=== PATIENT | female | born 1995 | race Caucasian/White ===

== ENCOUNTER 2018-01-05 04:58 | Inpatient (IN) | payer BC ==
[2018-01-05] MEDS ORDERED: Sodium Chloride 0.9% 10 ML Syringe FLUSH PRN (06:37)
[2018-01-05] MEDS ORDERED: Ampicillin 2 GM in Sodium Chloride 0.9% 100 ML IV ONE (06:37)
--- NOTE | 2018-01-05 06:38 | PCM.LDHP ---
L&D History of Present Illness - General Date of Service: 01/05/18 Admit Problem/Dx: Patient Status Order with Admit Dx/Problem 01/05/18 05:06 Patient Status [ADT] Routine Admission Diagnosis/Problem Admission Diagnosis/Problem and not yet delivered Source of Information: Patient History Limitations: Reports: No Limitations - History of Present Illness Introduction:: 22 yo primigravida with leakage of fluid since this morning. No fever or bleeding. Has had unremarkable except Group B is positive. Quality: Reports: Pressure Improves with: Reports: None Worsens with: Reports: None Associated Symptoms: Reports: N - Related Data Allergies/Adverse Reactions: Allergies Allergy/AdvReac Type Severity Reaction Status Date / Time No Known Allergies Allergy Verified 01/05/18 06:41 H&P Review of Systems - Review of Systems: Review Of Systems: ROS reveals no pertinent complaints other than HPI. L&D Exam - Exam Exam: See Below - OB Specific Contraction Intensity: Mild to Moderate Movement: Active Heart Tones: Present Heart Rate (FHR) Variability: Moderate (6-25 bmp) Presentation: Vertex - Vargas Score Vargas Score Cervix Position: Midposition Vargas Score Effacement: 31-50% Vargas Score Dilation: 3-4 cm - Exam General: Alert, Oriented HEENT: PERRLA, Conjunctiva Clear, EACs Clear, EOMI, Hearing Intact, Mucosa Moist & [place], Nares Patent, Normal Nasal Septum, Posterior Pharynx Clear, TMs Clear Neck: Supple, Trachea Midline Lungs: Clear to Auscultation, Normal Respiratory Effort Cardiovascular: Regular Rate, Regular Rhythm GI/Abdominal Exam: Normal Bowel Sounds, Soft, Non-Tender, No Organomegaly, No Distention, No Abnormal Bruit, No Mass, Pelvis Stable Rectal Exam: Normal Exam, Normal Rectal Tone Genitourinary: Normal external exam, Normal bimanual exam, Normal speculum exam Back Exam: Normal Inspection, Full Range of Motion Extremities: Normal Inspection, Normal Range of Motion, Non-Tender, No Pedal Edema, Normal Capillary Refill Skin: Warm, Dry, Intact Neurological: Cranial Nerves Intact, Reflexes Equal Bilateral Psychiatric: Alert, Normal Affect, Normal Mood - Patient Data Lab Results Last 24 hrs: Laboratory Results - last 24 hr 01/05/18 Range/Units 06:15 Membrane Rupture Positive H (NEGATIVE) - Problem List (1) Rupture, membranes, premature SNOMED Code(s): 02393692 ICD Code: O42.90 - EMETERIO ROM, 7TH0 BETW RUPT & ONST LABR, UNSP WEEKS OF GEST Status: Acute Current Visit: Yes Qualifiers: PROM onset of labor timing: onset of labor within 24 hours of rupture (2) Term SNOMED Code(s): 64263200 ICD Code: Z34.80 - ENCOUNTER FOR SUPRVSN OF NORMAL , UNSP TRIMESTER Status: Acute Current Visit: Yes (3) Group B streptococcal carriage complicating SNOMED Code(s): 258528922184047 ICD Code: O99.820 - STREPTOCOCCUS B CARRIER STATE COMPLICATING Status: Acute Current Visit: Yes Problem List Initiated/Reviewed/Updated: Yes Orders Last 24hrs: Active Orders 24 hr Category Date Time Status Patient Status [ADT] Routine ADT 01/05/18 05:06 Active Monitoring [RC] CONTINUOUS Care 01/05/18 05:06 Active AMNISURE RUPTURE MEMBRAN [BF] Stat Lab 01/05/18 06:15 Ordered Resuscitation Status Routine Resus Stat 01/05/18 05:06 Ordered Assessment/Plan Comment:: Start Pitocin to augment labor. Start Chemoprophylaxis with Ampicillin per protocol.
[2018-01-05] MEDS: Lactated Ringers 1,000 ML IV SCH ×2 (10:28→16:23)
[2018-01-05] MEDS: Ampicillin 1 GM in Sodium Chloride 0.9% 50 ML IV SCH ×2 (11:00→15:38)
[2018-01-05] MEDS ORDERED: fentaNYL 100 MCG/2 ML SDV ITHECAL ONE (16:00)
[2018-01-05] MEDS ORDERED: Bupivacaine 0.75%/D5W 2 ML Amp ISPINAL ONE (16:00)
[2018-01-05] MEDS ORDERED: Morphine PF 10 MG/10 ML SDV ONE (16:00)
[2018-01-05] MEDS ORDERED: ePHEDrine 50 MG/ML SDV ONE (16:10)
[2018-01-05] MEDS ORDERED: Naloxone 0.4 MG/ML SDV ONE (16:11)
[2018-01-05] MEDS ORDERED: diphenhydrAMINE 50 MG/ML SDV IV PRN (17:12)
[2018-01-05] MEDS ORDERED: Ondansetron 4 MG/2 ML SDV IVPUSH PRN (17:12)
[2018-01-05] MEDS ORDERED: Naloxone 0.4 MG/ML SDV IVPUSH PRN (17:12)
[2018-01-05] MEDS ORDERED: Nalbuphine 10 MG/1 ML Vial IVPUSH PRN (17:12)
[2018-01-05] MEDS ORDERED: Ibuprofen 600 MG Tab PO PRN (17:45)
[2018-01-05] MEDS ORDERED: Misoprostol 200 MCG Tab RECTAL PRN (17:45)
--- NOTE | 2018-01-05 17:50 | PCM.DEL ---
L & D Note - General Info Date of Service: 01/05/18 - Delivery Note Labor: Spontaneous, Augmented by ARM, Augmented by Oxytocin Delivery Outcome: Livebirth Infant Delivery Method: Spontaneous Vaginal Delivery-Single Presentation: Vertex Nuchal Cord: None Prep: Povidone-Iodine (Betadine Anesthesia Type: Intrathecal Amniotic Fluid Description: Clear Episiotomy Type: None Laceration: 1st Degree, Periurethral Placenta: Intact, Spontaneous Cord: 3 Vessels Resuscitation Needed: No [place]: Bulb Syringe, Warmer Used Second Stage Interventions: Reports: Second Nurse Assessed Progress of Descent, Second Nurse Reviewed Contraction Pattern, Second Nurse Reviewed Heart Tones, Encouragement Given, Pushing Effectively, Pushing, Birthing Stool, Pushing, McRobert's Position Delivery Comments (Free Text/Narrative):: Live female infant born at 1733hrs. Apgars 9/9.Delayed cord clamping. Had hemorrhage about 6-700 cc.Need Pitocin and Cytotec rectally to achieve contractions and homeostasis.2 Simple periurethral lacs no need for suture. - General Info Date of Service: 01/05/18 Functional Status: Reports: Pain Controlled - Review of Systems General: Reports: No Symptoms HEENT: Reports: No Symptoms Pulmonary: Reports: No Symptoms Cardiovascular: Reports: No Symptoms Gastrointestinal: Reports: No Symptoms Genitourinary: Reports: No Symptoms Musculoskeletal: Reports: No Symptoms Skin: Reports: No Symptoms Neurological: Reports: No Symptoms Psychiatric: Reports: No Symptoms - Patient Data Vitals - Most Recent: Last Vital Signs Temp 97.6 F 01/05/18 10:30 Pulse 66 01/05/18 13:31 Resp 20 01/05/18 10:30 BP 104/58 L 01/05/18 12:54 Pulse Ox 98 01/05/18 12:17 Weight - Most Recent: 77.564 kg I&O - Last 24 Hours: Intake & Output 01/05/18 01/05/18 01/05/18 06:59 14:59 22:59 Intake Total 131 Output Total 1300 Balance -1169 Lab Results Last 24 Hours: Laboratory Results - last 24 hr 01/05/18 Range/Units 06:15 Membrane Rupture Positive H (NEGATIVE) Med Orders - Current: Current Medications Diphenhydramine HCl (Benadryl) 25 mg IV ONETIME PRN PRN Reason: Pruritus Ampicillin Sodium 1 gm/ Sodium (Chloride) 50 mls @ 100 mls/hr IV Q4H [facility] Last Admin: 01/05/18 15:38 Dose: 100 mls/hr Oxytocin/Sodium Chloride (Pitocin In Ns 20 Units/1,000 Ml) 20 unit in 1,000 mls @ 6 mls/hr IV TITRATE [facility]; Protocol Last Titration: 01/05/18 14:45 Dose: 14 munits/min, 42 mls/hr Lactated Ringer's (Ringers, Lactated) 1,000 mls @ 125 mls/hr IV ASDIRECTED [facility] Last Admin: 01/05/18 16:23 Dose: 125 mls/hr Nalbuphine HCl (Nubain) 10 mg IVPUSH Q1H PRN PRN Reason: Pruritus Naloxone HCl (Narcan) 0.1 mg IVPUSH ONETIME PRN PRN Reason: Oversedation Ondansetron HCl (Zofran) 4 mg IVPUSH Q6H PRN PRN Reason: Nausea/Vomiting Sodium Chloride (Saline Flush) 10 ml FLUSH ASDIRECTED PRN PRN Reason: Keep Vein Open Last Admin: 01/05/18 07:18 Dose: 10 ml Discontinued Medications Ephedrine Sulfate (Ephedrine Sulfate) Confirm Administered Dose 50 mg .ROUTE .STK-MED ONE Stop: 01/05/18 16:11 Ampicillin Sodium 2 gm/ Sodium (Chloride) 100 mls @ 200 mls/hr IV ONETIME ONE Stop: 01/05/18 07:06 Last Admin: 01/05/18 07:15 Dose: 200 mls/hr Naloxone HCl (Narcan) Confirm Administered Dose 0.4 mg .ROUTE .STK-MED ONE Stop: 01/05/18 16:12 - Exam General: Alert, Oriented HEENT: Pupils Equal, Pupils Reactive, EOMI, Mucous Membr. Moist/[place] Neck: Supple Lungs: Clear to Auscultation, Normal Respiratory Effort Cardiovascular: Regular Rate, Regular Rhythm GI/Abdominal Exam: Normal Bowel Sounds, Soft, Non-Tender, No Organomegaly, No Distention, No Abnormal Bruit, No Mass, Pelvis Stable (Female) Exam: Normal External Exam, Normal Speculum Exam, Normal Bimanual Exam Back Exam: Normal Inspection, Full Range of Motion Extremities: Normal Inspection, Normal Range of Motion, Non-Tender, No Pedal Edema, Normal Capillary Refill Skin: Warm, Dry, Intact Wound/Incisions: Healing Well Neurological: No New Focal Deficit Psy/Mental Status: Alert, Normal Affect, Normal Mood - Problem List & Annotations (1) Rupture, membranes, premature SNOMED Code(s): 11045114 Code(s): O42.90 - EMETERIO ROM, 7TH0 BETW RUPT & ONST LABR, UNSP WEEKS OF GEST Status: Acute Current Visit: Yes Qualifiers: PROM onset of labor timing: onset of labor within 24 hours of rupture (2) Term SNOMED Code(s): 45260104 Code(s): Z34.80 - ENCOUNTER FOR SUPRVSN OF NORMAL , UNSP TRIMESTER Status: Acute Current Visit: Yes (3) Group B streptococcal carriage complicating SNOMED Code(s): 905870287918667 Code(s): O99.820 - STREPTOCOCCUS B CARRIER STATE COMPLICATING Status: Acute Current Visit: Yes (4) hemorrhage SNOMED Code(s): 40588895 Code(s): O72.1 - OTHER IMMEDIATE HEMORRHAGE Status: Acute Current Visit: Yes - Problem List Review Problem List Initiated/Reviewed/Updated: Yes - My Orders Last 24 Hours: My Active Orders 01/05/18 05:06 Resuscitation Status Routine 01/05/18 06:15 AMNISURE RUPTURE MEMBRAN [BF] Stat 01/05/18 06:37 Patient Status [ADT] Routine Communication Order [RC] ASDIRECTED Notify Provider [RC] PRN Sodium Chloride 0.9% [Saline Flush] 10 ml FLUSH ASDIRECTED PRN Electronic Heart Tones Ext w TOCO [WOMSER] Per Unit Routine Peripheral IV Insertion Adult [OM.PC] Routine Saline Lock Insert [OM.PC] Routine 01/05/18 06:40 Notify Provider Vital Signs [RC] PRN 01/05/18 10:02 Communication Order [RC] ASDIRECTED Communication Order [RC] ASDIRECTED Communication Order [RC] ASDIRECTED Communication Order [RC] ASDIRECTED Notify Provider [RC] PRN Notify Provider [RC] STAT Vital Signs [RC] PER UNIT ROUTINE 01/05/18 10:15 Lactated Ringers [Ringers, Lactated] 1,000 ml IV ASDIRECTED Oxytocin/Normal Saline [Pitocin in NS 20 Units/1,000 ML] 20 unit in 1,000 ml IV TITRATE 01/05/18 11:00 Ampicillin 1 gm Sodium Chloride 0.9% [Normal Saline] 50 ml IV Q4H 01/05/18 17:45 Vital Signs [RC] PFP Ibuprofen [Motrin] 600 mg PO Q4H PRN Misoprostol [Cytotec] 600 mcg RECTAL ONETIME PRN Nothing Per Rectum [WOMSER] Per Unit Routine 01/06/18 05:11 CBC WITH AUTO DIFF [HEME] AM - Plan Plan:: Given Cytotec. Will follow VS and repeat CBC in AM.
--- NOTE | 2018-01-06 19:35 | PCM.PNPP ---
- General Info Date of Service: 01/06/18 Subjective Update: Doing well. - Review of Systems General: Reports: No Symptoms HEENT: Reports: No Symptoms Pulmonary: Reports: No Symptoms Cardiovascular: Reports: No Symptoms Gastrointestinal: Reports: No Symptoms Genitourinary: Reports: No Symptoms Musculoskeletal: Reports: No Symptoms - General Info Date of Service: 01/06/18 - Patient Data Vital Signs - Most Recent: Last Vital Signs Temp 98.0 F 01/06/18 16:00 Pulse 71 01/06/18 16:00 Resp 20 01/06/18 16:00 BP 112/71 01/06/18 16:00 Pulse Ox 98 01/06/18 16:00 Weight - Most Recent: 77.564 kg I&O - Last 24 Hours: Intake & Output 01/06/18 01/06/18 01/06/18 06:59 14:59 22:59 Intake Total 0 1500 1000 Output Total 600 1000 900 Balance -600 500 100 Lab Results - Last 24 Hours: Laboratory Results - last 24 hr 01/06/18 Range/Units 06:30 WBC 10.5 (4.5-12.0) X10-3/uL RBC 3.81 (3.23-5.20) x10(6)uL Hgb 12.3 (11.5-15.5) g/dL Hct 34.6 (30.0-51.3) % MCV 90.9 (80-96) fL MCH 32.3 (27.7-33.6) pg MCHC 35.6 H (32.2-35.4) g/dL RDW 12.0 (11.5-15.5) % Plt Count 199 (125-369) X10(3)uL MPV 8.5 (7.4-10.4) fL Neut % (Auto) 72.1 (46-82) % Lymph % (Auto) 17.4 (13-37) % [place] % (Auto) 9.1 (4-12) % Eos % (Auto) 1 (1.0-5.0) % Baso % (Auto) 1 (0-2) % Neut # (Auto) 7.5 (1.6-8.3) # Lymph # (Auto) 1.8 (0.6-5.0) # [place] # (Auto) 1.0 (0.0-1.3) # Eos # (Auto) 0.1 (0.0-0.8) # Baso # (Auto) 0.1 (0.0-0.2) # Med Orders - Current: Current Medications Diphenhydramine HCl (Benadryl) 25 mg IV ONETIME PRN PRN Reason: Pruritus Oxytocin/Sodium Chloride (Pitocin In Ns 20 Units/1,000 Ml) 20 unit in 1,000 mls @ 6 mls/hr IV TITRATE [facility]; Protocol Last Titration: 01/05/18 14:45 Dose: 14 munits/min, 42 mls/hr Lactated Ringer's (Ringers, Lactated) 1,000 mls @ 125 mls/hr IV ASDIRECTED [facility] Last Admin: 01/05/18 16:23 Dose: 125 mls/hr Ibuprofen (Motrin) 600 mg PO Q4H PRN PRN Reason: Pain Misoprostol (Cytotec) 600 mcg RECTAL ONETIME PRN PRN Reason: excessive vaginal bleeding Last Admin: 01/05/18 17:40 Dose: 600 mcg Nalbuphine HCl (Nubain) 10 mg IVPUSH Q1H PRN PRN Reason: Pruritus Naloxone HCl (Narcan) 0.1 mg IVPUSH ONETIME PRN PRN Reason: Oversedation Ondansetron HCl (Zofran) 4 mg IVPUSH Q6H PRN PRN Reason: Nausea/Vomiting Sodium Chloride (Saline Flush) 10 ml FLUSH ASDIRECTED PRN PRN Reason: Keep Vein Open Last Admin: 01/05/18 07:18 Dose: 10 ml Discontinued Medications Ephedrine Sulfate (Ephedrine Sulfate) Confirm Administered Dose 50 mg .ROUTE .STK-MED ONE Stop: 01/05/18 16:11 Last Admin: 01/05/18 18:07 Dose: Not Given Ampicillin Sodium 2 gm/ Sodium (Chloride) 100 mls @ 200 mls/hr IV ONETIME ONE Stop: 01/05/18 07:06 Last Admin: 01/05/18 07:15 Dose: 200 mls/hr Ampicillin Sodium 1 gm/ Sodium (Chloride) 50 mls @ 100 mls/hr IV Q4H [facility] Last Admin: 01/05/18 15:38 Dose: 100 mls/hr Naloxone HCl (Narcan) Confirm Administered Dose 0.4 mg .ROUTE .STK-MED ONE Stop: 01/05/18 16:12 Last Admin: 01/05/18 18:07 Dose: Not Given - Infant Interaction Disposition, : [place] at Bedside Infant Interaction: Holding Infant Infant Feeding: Attempted ; Nursed Fair/Poor Support Person: - Recovery Exam Fundal Tone: Firm Fundal Level: 1 Fingerbreadths Below Umbilicus Fundal Placement: Midline Lochia Amount: Small Lochia Color: Rubra/Red Perineum Description: Redness, Edematous Episiotomy/Laceration: None Bladder Status: Voiding - Exam General: Alert, Oriented HEENT: Pupils Equal Neck: Supple Lungs: Clear to Auscultation, Normal Respiratory Effort Cardiovascular: Regular Rate, Regular Rhythm GI/Abdominal Exam: Normal Bowel Sounds, Soft, Non-Tender, No Organomegaly, No Distention, No Abnormal Bruit, No Mass, Pelvis Stable Extremities: Normal Inspection, Normal Range of Motion, Non-Tender, No Pedal Edema, Normal Capillary Refill Skin: Warm, Dry, Intact Wound/Incisions: Healing Well Neurological: No New Focal Deficit Psy/Mental Status: Alert, Normal Affect, Normal Mood - Problem List & Annotations (1) Rupture, membranes, premature SNOMED Code(s): 77623347 Code(s): O42.90 - EMETERIO ROM, 7TH0 BETW RUPT & ONST LABR, UNSP WEEKS OF GEST Status: Acute Current Visit: Yes Qualifiers: PROM onset of labor timing: onset of labor within 24 hours of rupture (2) Term SNOMED Code(s): 12902094 Code(s): Z34.80 - ENCOUNTER FOR SUPRVSN OF NORMAL , UNSP TRIMESTER Status: Acute Current Visit: Yes (3) Group B streptococcal carriage complicating SNOMED Code(s): 172430303028582 Code(s): O99.820 - STREPTOCOCCUS B CARRIER STATE COMPLICATING Status: Acute Current Visit: Yes (4) hemorrhage SNOMED Code(s): 99443436 Code(s): O72.1 - OTHER IMMEDIATE HEMORRHAGE Status: Acute Current Visit: Yes - Problem List Review Problem List Initiated/Reviewed/Updated: Yes - My Orders Last 24 Hours: My Active Orders 01/06/18 09:54 Peripheral IV Discontinue [OM.PC] Routine 01/06/18 Lunch Regular Diet [DIET] - Plan Plan:: Doing ok. Will DC in AM
--- NOTE | 2018-01-07 07:29 | PCM.DCSUM1 ---
Discharge Summary - Hospital Course Free Text/Narrative:: Admitted for labor augmentation following PROM. Did well. - Discharge Data Discharge Date: 01/07/18 Discharge Disposition: Home, Self-Care 01 Condition: Good - Discharge Diagnosis/Problem(s) (1) Rupture, membranes, premature SNOMED Code(s): 00432540 ICD Code: O42.90 - EMETERIO ROM, 7TH0 BETW RUPT & ONST LABR, UNSP WEEKS OF GEST Status: Acute Current Visit: Yes Qualifiers: PROM onset of labor timing: onset of labor within 24 hours of rupture (2) Term SNOMED Code(s): 56640573 ICD Code: Z34.80 - ENCOUNTER FOR SUPRVSN OF NORMAL , UNSP TRIMESTER Status: Acute Current Visit: Yes (3) Group B streptococcal carriage complicating SNOMED Code(s): 917844900298364 ICD Code: O99.820 - STREPTOCOCCUS B CARRIER STATE COMPLICATING Status: Acute Current Visit: Yes (4) hemorrhage SNOMED Code(s): 16651859 ICD Code: O72.1 - OTHER IMMEDIATE HEMORRHAGE Status: Acute Current Visit: Yes - Discharge Plan Patient Handouts: , Breast Pumping Tips, and Mastitis, Baby Blues, Hand Washing, [id number], Home Care Instructions for Mom, Vaginal Delivery, Care After, Tips for a Good Latch, Care After Vaginal Delivery, Storing Breast Milk - General Info Date of Service: 01/07/18 Admission Dx/Problem (Free Text: Patient Status Order with Admit Dx/Problem 01/05/18 05:06 Patient Status [ADT] Routine Admission Diagnosis/Problem Admission Diagnosis/Problem and not yet delivered Subjective Update: Doing well. Functional Status: Reports: Pain Controlled - Review of Systems General: Reports: No Symptoms HEENT: Reports: No Symptoms Pulmonary: Reports: No Symptoms Cardiovascular: Reports: No Symptoms Gastrointestinal: Reports: No Symptoms Genitourinary: Reports: No Symptoms Musculoskeletal: Reports: No Symptoms Skin: Reports: No Symptoms Neurological: Reports: No Symptoms Psychiatric: Reports: No Symptoms - Patient Data Vitals - Most Recent: Last Vital Signs Temp 98.0 F 01/06/18 16:00 Pulse 71 01/06/18 16:00 Resp 20 01/06/18 16:00 BP 112/71 01/06/18 16:00 Pulse Ox 98 06/02/18 16:00 Weight - Most Recent: 77.564 kg I&O - Last 24 hours: Intake & Output 01/06/18 01/07/18 01/07/18 22:59 06:59 14:59 Intake Total 1000 Output Total 900 Balance 100 Med Orders - Current: Current Medications Diphenhydramine HCl (Benadryl) 25 mg IV ONETIME PRN PRN Reason: Pruritus Oxytocin/Sodium Chloride (Pitocin In Ns 20 Units/1,000 Ml) 20 unit in 1,000 mls @ 6 mls/hr IV TITRATE [facility]; Protocol Last Titration: 01/05/18 14:45 Dose: 14 munits/min, 42 mls/hr Lactated Ringer's (Ringers, Lactated) 1,000 mls @ 125 mls/hr IV ASDIRECTED [facility] Last Admin: 01/05/18 16:23 Dose: 125 mls/hr Ibuprofen (Motrin) 600 mg PO Q4H PRN PRN Reason: Pain Misoprostol (Cytotec) 600 mcg RECTAL ONETIME PRN PRN Reason: excessive vaginal bleeding Last Admin: 01/05/18 17:40 Dose: 600 mcg Nalbuphine HCl (Nubain) 10 mg IVPUSH Q1H PRN PRN Reason: Pruritus Naloxone HCl (Narcan) 0.1 mg IVPUSH ONETIME PRN PRN Reason: Oversedation Ondansetron HCl (Zofran) 4 mg IVPUSH Q6H PRN PRN Reason: Nausea/Vomiting Sodium Chloride (Saline Flush) 10 ml FLUSH ASDIRECTED PRN PRN Reason: Keep Vein Open Last Admin: 01/05/18 07:18 Dose: 10 ml Discontinued Medications Ephedrine Sulfate (Ephedrine Sulfate) Confirm Administered Dose 50 mg .ROUTE .STK-MED ONE Stop: 01/05/18 16:11 Last Admin: 01/05/18 18:07 Dose: Not Given Ampicillin Sodium 2 gm/ Sodium (Chloride) 100 mls @ 200 mls/hr IV ONETIME ONE Stop: 01/05/18 07:06 Last Admin: 01/05/18 07:15 Dose: 200 mls/hr Ampicillin Sodium 1 gm/ Sodium (Chloride) 50 mls @ 100 mls/hr IV Q4H [facility] Last Admin: 01/05/18 15:38 Dose: 100 mls/hr Naloxone HCl (Narcan) Confirm Administered Dose 0.4 mg .ROUTE .STK-MED ONE Stop: 01/05/18 16:12 Last Admin: 01/05/18 18:07 Dose: Not Given - Exam General: Reports: Alert, Oriented HEENT: Reports: Pupils Equal, Pupils Reactive, EOMI, Mucous Membr. Moist/[place] Neck: Reports: Supple Lungs: Reports: Clear to Auscultation, Normal Respiratory Effort Cardiovascular: Reports: Regular Rate, Regular Rhythm GI/Abdominal Exam: Normal Bowel Sounds, Soft, Non-Tender, No Organomegaly, No Distention, No Abnormal Bruit, No Mass, Pelvis Stable (Female) Exam: Normal External Exam, Normal Speculum Exam, Normal Bimanual Exam Rectal (Female) Exam: Normal Exam, Normal Rectal Tone Back Exam: Reports: Normal Inspection, Full Range of Motion Extremities: Normal Inspection, Normal Range of Motion, Non-Tender, No Pedal Edema, Normal Capillary Refill Skin: Reports: Warm, Dry, Intact Wound/Incisions: Reports: Healing Well Neurological: Reports: No New Focal Deficit Psy/Mental Status: Reports: Alert, Normal Affect, Normal Mood
== END 2018-01-07 09:25 | disposition home or self-care (01) | DRG 560 ==
LOC: FB.OBCHECK 04:58 → FB.OB 04:59 → FB.OBCHECK 06:37 → FB.OB 06:37
PROVIDERS: ADMIT Family Medicine; ATTEND Family Medicine
PROC: 10E0XZZ Delivery of Products of Conception, External Approach (ICD-10-PCS; principal; 2018-01-05)
PROC: 0HQ9XZZ Repair Perineum Skin, External Approach (ICD-10-PCS; 2018-01-05)
DX: O42.013 Preterm premature rupture of membranes, onset of labor within 24 hours of rupture, third trimester (principal); O72.1 Other immediate postpartum hemorrhage; O99.824 Streptococcus B carrier state complicating childbirth; O71.82 Other specified trauma to perineum and vulva; Z3A.36 36 weeks gestation of pregnancy; Z37.0 Single live birth
CPT/HCPCS: 36415; 59409; 84112; 85025; A9270-GY; J0290; J2270; J2590; J3010; J7030; J7050; J7120

== ENCOUNTER 2019-05-06 07:11 | Inpatient (IN) | payer BC ==
[2019-05-06] MEDS ORDERED: Oxytocin 10 Units/1 ML SDV IM ONE (07:30)
[2019-05-06] MEDS ORDERED: Lactated Ringers 1,000 ML IV ONE (08:00)
[2019-05-06] MEDS ORDERED: Ketorolac 30 MG/ML SDV IVPUSH ONE (08:25)
[2019-05-06] MEDS ORDERED: Ketorolac 30 MG/ML SDV ONE (08:28)
--- NOTE | 2019-05-06 10:03 | PCM.DEL ---
L & D Note - General Info Date of Service: 05/06/19 - Delivery Note Labor: Spontaneous Delivery Outcome: Livebirth Delivery Method: Spontaneous Vaginal Delivery-Single Presentation: Left Occiput Anterior ([place]ONATHAN) Nuchal Cord: None Prep: Povidone-Iodine (Betadine Anesthesia Type: None Amniotic Fluid Description: Clear Episiotomy Type: None Laceration: None Placenta: Intact, Spontaneous Cord: 3 Vessels Estimated Blood Loss: 200 Resuscitation Needed: No : Suctioned, Bulb Syringe, Stimulated, Warmed, [place] Used, Warmer Used Score 1 min: 8 Score 5 min: 9 Second Stage Interventions: Reports: Second Nurse Assessed Progress of Descent, Second Nurse Reviewed Contraction Pattern, Encouragement Given, Pushing Effectively, Pushing, McRobert's Position - General Info Date of Service: 05/06/19 Functional Status: Reports: Pain Controlled - Patient Data Med Orders - Current: Current Medications Ibuprofen (Motrin) 600 mg PO Q4H PRN PRN Reason: Pain Discontinued Medications Lactated Ringer's (Ringers, Lactated) 1,000 mls @ 999 mls/hr IV BOLUS ONE Stop: 05/06/19 09:00 Ketorolac Tromethamine (Toradol) Confirm Administered Dose 30 mg .ROUTE .STK- MED ONE Stop: 05/06/19 08:29 Last Admin: 05/06/19 08:34 Dose: Not Given Ketorolac Tromethamine (Toradol) 30 mg IVPUSH ONETIME ONE Stop: 05/06/19 08:26 Last Admin: 05/06/19 08:30 Dose: 30 mg - Exam General: Alert, Oriented HEENT: Pupils Equal, Pupils Reactive, EOMI, Mucous Membr. Moist/[place] Neck: Supple Lungs: Clear to Auscultation, Normal Respiratory Effort Cardiovascular: Regular Rate, Regular Rhythm GI/Abdominal Exam: Normal Bowel Sounds, Soft, Non-Tender, No Organomegaly, No Distention, No Abnormal Bruit, No Mass, Pelvis Stable (Female) Exam: Normal External Exam, Normal Speculum Exam, Normal Bimanual Exam Back Exam: Normal Inspection, Full Range of Motion Extremities: Normal Inspection, Normal Range of Motion, Non-Tender, No Pedal Edema, Normal Capillary Refill Skin: Warm, Dry, Intact Wound/Incisions: Healing Well Neurological: No New Focal Deficit Psy/Mental Status: Alert, Normal Affect, Normal Mood - Problem List & Annotations (1) Delivery normal SNOMED Code(s): 72485430, 472896094 Code(s): O80 - ENCOUNTER FOR FULL-TERM UNCOMPLICATED DELIVERY Status: Acute Current Visit: Yes (2) Group B streptococcal carriage complicating SNOMED Code(s): 057620495480207 Code(s): O99.820 - STREPTOCOCCUS B CARRIER STATE COMPLICATING Status: Acute Current Visit: No (3) Term SNOMED Code(s): 38124227 Code(s): Z34.80 - ENCOUNTER FOR SUPRVSN OF NORMAL , UNSP TRIMESTER Status: Acute Current Visit: No - Problem List Review Problem List Initiated/Reviewed/Updated: Yes - My Orders Last 24 Hours: My Active Orders 05/06/19 08:15 Admission Status [Patient Status] [ADT] Routine 05/06/19 09:48 Vital Signs [RC] PFP Ibuprofen [Motrin] 600 mg PO Q4H PRN Assess Lochia [WOMSER] Per Unit Routine Resuscitation Status Routine 05/06/19 09:49 Perineal Care [OM.PC] Per Unit Routine 05/07/19 05:11 CBC WITH AUTO DIFF [HEME] AM - Plan Plan:: Routine care
[2019-05-06] MEDS: Ibuprofen 600 MG Tab PO PRN ×2 (14:45→20:58)
--- NOTE | 2019-05-07 07:51 | PCM.PN ---
- General Info Date of Service: 05/07/19 Subjective Update: No complains Functional Status: Reports: Pain Controlled - Review of Systems General: Reports: No Symptoms HEENT: Reports: No Symptoms Pulmonary: Reports: No Symptoms Cardiovascular: Reports: No Symptoms Gastrointestinal: Reports: No Symptoms Genitourinary: Reports: No Symptoms - Patient Data Vitals - Most Recent: Last Vital Signs Temp 98.2 F 05/07/19 02:00 Pulse 72 05/07/19 02:00 Resp 18 05/07/19 02:00 BP 118/64 05/07/19 02:00 Pulse Ox 98 05/07/19 02:00 Weight - Most Recent: 81.647 kg Lab Results Last 24 Hours: Laboratory Results - last 24 hr 05/07/19 Range/Units 07:20 WBC 8.5 (4.5-12.0) X10-3/uL RBC 3.85 (3.23-5.20) x10(6)uL Hgb 11.8 (11.5-15.5) g/dL Hct 34.1 (30.0-51.3) % MCV 88.7 (80-96) fL MCH 30.6 (27.7-33.6) pg MCHC 34.4 (32.2-35.4) g/dL RDW 12.1 (11.5-15.5) % Plt Count 194 (125-369) X10(3)uL MPV 8.4 (7.4-10.4) fL Neut % (Auto) 74.4 (46-82) % Lymph % (Auto) 18.7 (13-37) % Posey % (Auto) 4.9 (4-12) % Eos % (Auto) 2 (1.0-5.0) % Baso % (Auto) 0 (0-2) % Neut # (Auto) 6.4 (1.6-8.3) # Lymph # (Auto) 1.6 (0.6-5.0) # Posey # (Auto) 0.4 (0.0-1.3) # Eos # (Auto) 0.1 (0.0-0.8) # Baso # (Auto) 0.0 (0.0-0.2) # Med Orders - Current: Current Medications Ibuprofen (Motrin) 600 mg PO Q4H PRN PRN Reason: Pain Last Admin: 05/06/19 20:58 Dose: 600 mg Discontinued Medications Lactated Ringer's (Ringers, Lactated) 1,000 mls @ 999 mls/hr IV BOLUS ONE Stop: 05/06/19 09:00 Last Admin: 05/06/19 08:00 Dose: 999 mls/hr Ketorolac Tromethamine (Toradol) Confirm Administered Dose 30 mg .ROUTE .STK- MED ONE Stop: 05/06/19 08:29 Last Admin: 05/06/19 08:34 Dose: Not Given Ketorolac Tromethamine (Toradol) 30 mg IVPUSH ONETIME ONE Stop: 05/06/19 08:26 Last Admin: 05/06/19 08:30 Dose: 30 mg Oxytocin (Pitocin) 10 unit IM ONETIME ONE Stop: 05/06/19 07:31 Last Admin: 05/06/19 07:45 Dose: 10 unit - Exam General: Alert, Oriented HEENT: Pupils Equal Neck: Supple Lungs: Clear to Auscultation Cardiovascular: Regular Rate GI/Abdominal Exam: Normal Bowel Sounds (Female) Exam: Normal External Exam - Problem List & Annotations (1) Delivery normal SNOMED Code(s): 99408406, 044342097 Code(s): O80 - ENCOUNTER FOR FULL-TERM UNCOMPLICATED DELIVERY Status: Acute Current Visit: Yes (2) Group B streptococcal carriage complicating SNOMED Code(s): 718716366908563 Code(s): O99.820 - STREPTOCOCCUS B CARRIER STATE COMPLICATING Status: Acute Current Visit: No (3) Term SNOMED Code(s): 32782151 Code(s): Z34.80 - ENCOUNTER FOR SUPRVSN OF NORMAL , UNSP TRIMESTER Status: Acute Current Visit: No - Problem List Review Problem List Initiated/Reviewed/Updated: Yes - My Orders Last 24 Hours: My Active Orders 05/06/19 08:15 Admission Status [Patient Status] [ADT] Routine 05/06/19 09:48 Vital Signs [RC] PFP Ibuprofen [Motrin] 600 mg PO Q4H PRN Assess Lochia [WOMSER] Per Unit Routine Resuscitation Status Routine 05/06/19 09:49 Perineal Care [OM.PC] Per Unit Routine 05/07/19 Breakfast Regular Diet [DIET] - Plan Plan:: Routine discharge
== END 2019-05-07 13:40 | disposition home or self-care (01) | DRG 560 ==
LOC: FB.OBCHECK 07:11 → FB.OB 07:12
PROVIDERS: ADMIT Family Medicine; ATTEND Family Medicine
PROC: 10E0XZZ Delivery of Products of Conception, External Approach (ICD-10-PCS; principal; 2019-05-06)
DX: O99.824 Streptococcus B carrier state complicating childbirth (principal); Z3A.38 38 weeks gestation of pregnancy; Z37.0 Single live birth
CPT/HCPCS: 36415; 59409; 85025; A9270-GY; J1885; J2590; J7120